=== PATIENT | female | born 1985 | race Caucasian/White ===

== ENCOUNTER 2016-09-04 19:32 | Emergency (ER) | payer BC, OTHER ==
[2016-09-04 21:36] VITALS: BP 126/64
[2016-09-04] MEDS ORDERED: Benzonatate CAP* 100 MG PO ONE (22:41)
[2016-09-04] MEDS ORDERED: predniSONE TAB* 20 MG PO ONE (22:41)
--- NOTE | 2016-09-04 22:48 | UC ---
Respiratory Complaint HPI - HPI Summary HPI Summary: Patient arrives to with CC of fever. She states she never has a fever, and she comes in today because she has had a low grade temp since this morning. She is also having dysphonia since this morning and body aches. She has had the flu vaccine this year. She denies mucous production, rhinorrhea, or sputum. She endorses ear pain and MAGDALENO. She has taken Tylenol with little relief of symptoms. - History of Current Complaint Chief Complaint: UCGeneralIllness Stated Complaint: FEVER Time Seen by Provider: 09/04/16 21:53 Hx Obtained From: Patient Hx Last Menstrual Period: 08/04/16 ?: No Onset/Duration: Sudden Onset Timing: Constant Severity Initially: Moderate Severity Currently: Moderate Pain Intensity: 4 Pain Scale Used: 0-10 Numeric Character: Cough: Nonproductive Aggravating Factors: Allergens Alleviating Factors: Bronchodilator Associated Signs And Symptoms: Positive: Dyspnea, URI Related History: Seasonal Allergies - Risk Factors Pulmonary Embolism Risk Factors: Negative Cardiac Risk Factors: Negative Pseudomonas Risk Factors: Negative Tuberculosis Risk Factors: Negative - Allergies/Home Medications Allergies/Adverse Reactions: Allergies Allergy/AdvReac Type Severity Reaction Status Date / Time Amoxicillin [From Augmentin] Allergy Intermediate Hives Verified 09/04/16 21:36 Clavulanic Acid Allergy Intermediate Hives Verified 09/04/16 21:36 [From Augmentin] Home Medications: Home Medications Dextromethorphan-Phenylephrine [Day Time Multi-Symptom Co] 1 cap PO PRN [History] Ibuprofen TAB* [Advil TAB*] 400 mg PO Q6H PRN 09/04/16 [History Confirmed ] PMH/Surg Hx/FS Hx/Imm Hx Previously Healthy: Yes - Surgical History Surgical History: None - Family History Known Family History: Positive: Unknown - Social History Occupation: Employed Full-time Lives: With Family Alcohol Use: Occasionally Substance Use Type: None Smoking Status (MU): Never Smoked Tobacco Review of Systems Constitutional: Fatigue Skin: Negative Eyes: Negative ENT: Ear Ache Respiratory: Shortness Of Breath, Cough Cardiovascular: Negative Motor: Negative Musculoskeletal: Negative Neurological: Headache Psychological: Negative All Other Systems Reviewed And Are Negative: Yes Physical Exam Triage Information Reviewed: Yes Appearance: Well-Appearing, No Pain Distress, Well-Nourished Vital Signs: Initial Vital Signs Temp 99.9 F 09/04/16 21:30 Pulse 76 09/04/16 21:30 Resp 16 09/04/16 21:30 BP 126/64 09/04/16 21:30 Pulse Ox 100 09/04/16 21:30 Vital Signs Reviewed: Yes Eye Exam: Normal Eyes: Positive: Conjunctiva Clear ENT Exam: Normal ENT: Positive: Pharynx normal, TMs normal Dental Exam: Normal Neck exam: Normal Neck: Positive: Supple, No Lymphadenopathy Respiratory: Positive: Chest non-tender, Lungs clear Cardiovascular Exam: Normal Cardiovascular: Positive: RRR Musculoskeletal Exam: Normal Musculoskeletal: Positive: Strength Intact Neurological Exam: Normal Neurological: Positive: Alert Psychological Exam: Normal Psychological: Positive: Normal Response To Family Skin Exam: Normal UC Diagnostic Evaluation - Laboratory O2 Sat by Pulse Oximetry: 100 Respiratory Course/Dx - Course Course Of Treatment: Patient given tessalon perles and prednisone rx. tessalon and prednisone one dose of each to dispense to home. Note given for work. Patient will follow up with PCP. Flu negative. - Differential Dx/Diagnosis Differential Diagnosis/HQI/PQRI: Bronchitis, Laryngitis, Sinusitis Provider Diagnoses: Viral Illness Discharge - Discharge Plan Condition: Stable Disposition: HOME Prescriptions: Benzonatate CAP* [Tessalon CAP*] 100 mg PO TID #21 cap predniSONE TAB* [Deltasone TAB*] 50 mg PO DAILY #5 tab Patient Education Materials: Viral Syndrome (ED) Referrals: Mariaelena Nevarez NP [Primary Care Provider] - Additional Instructions: Drink plenty of fluids. A humidifier in the home can help with congestion during the colder months. Take any medication prescribed to you as directed. If you have any questions regarding your medications, you may call the office or your pharmacist. If your symptoms fail to improve or worsen, please call your primary care provider, come back to urgent care or the emergency room. Prednisone daily for 6 days total - take in the morning Tessalon - take 1 cap up to 3 times daily as needed for cough
== END 2016-09-04 22:55 | disposition home or self-care (01) ==
LOC: UCCORT 19:32
DX: B34.9 Viral infection, unspecified (principal); Z88.1 Allergy status to other antibiotic agents
CPT/HCPCS: 87502; 99202; A9270-GY; G0463; J7512

== ENCOUNTER 2018-04-03 19:32 | Emergency (ER) | payer OTHER ==
[2018-04-03 21:26] VITALS: BP 126/71
[2018-04-03] MEDS ORDERED: Fluorescein Sodium TOPICAL* 1 MG TEST STRIP OPHTHALMIC ONE (21:28)
--- NOTE | 2018-04-03 21:38 | UC ---
Eye Complaint HPI - HPI Summary HPI Summary: 32 yo female wore contacts for the first time in 3-4 months about one hour later noted bilat eye irritation she removed contacts right eye improved somewhat photophobia bilat (mild) vision blurred - History of Current Complaint Chief Complaint: UCEye Stated Complaint: EYE COMPLAINT Time Seen by Provider: 04/03/18 21:20 Hx Obtained From: Patient Hx Last Menstrual Period: 04/01/18 Onset/Duration: Gradual Onset, Lasting Hours Timing: Constant Severity Initially: Mild Severity Currently: Mild Pain Intensity: 3 Pain Scale Used: 0-10 Numeric Location of Injury: Conjunctiva Character: Dull Aggravating Factor(s): Light Alleviating Factor(s): Darkness Associated Signs And Symptoms: Positive: Photophobia - mild, Drainage (Clear), Vision Impairment Bilateral - blurred Eyes: 1 - florescein uptake. appears to be 2 ulcers 2 - muliple parellel areas of uptake///////// - Risk Factors Penetrating Injury Risk Factor: Negative Globe Rupture Risk Factors: Negative Optic Artery Occlusion Risk Factors: Negative - Allergies/Home Medications Allergies/Adverse Reactions: Allergies Allergy/AdvReac Type Severity Reaction Status Date / Time amoxicillin [From Augmentin] Allergy Hives Verified 04/03/18 21:21 clavulanic acid Allergy Hives Verified 04/03/18 21:21 [From Augmentin] Home Medications: Home Medications Noreth-Ethinyl Estradiol/Iron [[id number] 0.4-0.035(93)-75] 1 tab DAILY 04/03 [History Confirmed 04/03/18] PMH/Surg Hx/FS Hx/Imm Hx Previously Healthy: Yes - Surgical History Surgical History: None - Family History Known Family History: Positive: Hypertension Negative: Cardiac Disease, Diabetes - Social History Alcohol Use: Occasionally Substance Use Type: None Smoking Status (MU): Never Smoked Tobacco Review of Systems Constitutional: Negative Skin: Negative Eyes: Blurred Vision, Drainage, Eye Redness, Photophobia ENT: Negative Respiratory: Negative Cardiovascular: Negative Gastrointestinal: Negative Genitourinary: Negative Motor: Negative Neurovascular: Negative Musculoskeletal: Negative Neurological: Negative Psychological: Negative All Other Systems Reviewed And Are Negative: Yes Physical Exam Triage Information Reviewed: Yes Appearance: Well-Appearing, No Pain Distress, Well-Nourished Vital Signs: Initial Vital Signs Temp 97.4 F 04/03/18 21:22 Pulse 60 04/03/18 21:22 Resp 16 04/03/18 21:22 BP 126/71 04/03/18 21:22 Pulse Ox 100 04/03/18 21:22 Eyes: Positive: Conjunctiva Inflamed, Other: - florescein uptake bilat (see image). Negative: Discharge ENT: Positive: Hearing grossly normal. Negative: Nasal congestion, Nasal drainage, Trismus, Hoarse voice Neck: Positive: Supple, Nontender, No Lymphadenopathy Respiratory: Positive: Lungs clear, Normal breath sounds, No respiratory distress, No accessory muscle use Cardiovascular: Positive: RRR, No Murmur Musculoskeletal: Positive: ROM Intact, No Edema Neurological: Positive: Alert Psychological Exam: Normal Skin Exam: Normal Eye Complaint Course/Dx - Differential Dx/Diagnosis Provider Diagnoses: corneal ulceration (R). corneal abrasions (L) Discharge - Sign-Out/Discharge Documenting (check all that apply): Patient Departure All imaging exams completed and their final reports reviewed: No Studies - Discharge Plan Condition: Stable Disposition: HOME Patient Education Materials: Corneal Abrasion (ED), Corneal Ulcer (ED) Referrals: Marion Castorena MD [Medical Doctor] - 1 Day Anoop Fonseca MD [Medical Doctor] - 1 Day Additional Instructions: Right eye - suspect corneal ulcers left eye- suspect multiple corneal abrasion no contact lense use you should see a specialist tomorrow if unable to get in to see Dr. Fonseca or Dr. Castorena let us know - Billing Disposition and Condition Condition: STABLE Disposition: Home
[2018-04-03] MEDS ORDERED: Ciprofloxacin 0.3% OPTH.SOL* 2.5 ML BTL RIGHT EYE ONE (21:43)
[2018-04-03] MEDS ORDERED: Erythromycin OPTH OINT* APPLIC OINT BOTH EYES ONE (21:44)
== END 2018-04-03 22:03 | disposition home or self-care (01) ==
LOC: UCCORT 19:32
DX: H16.001 Unspecified corneal ulcer, right eye (principal); S05.01XA Injury of conjunctiva and corneal abrasion without foreign body, right eye, initial encounter; X58.XXXA Exposure to other specified factors, initial encounter; Y92.9 Unspecified place or not applicable; Z88.0 Allergy status to penicillin; Z88.1 Allergy status to other antibiotic agents
CPT/HCPCS: 99213; A9270-GY; G0463